=== PATIENT | female | born 1940 | race American Indian/Alaskan Native ===

== ENCOUNTER 2019-06-14 20:07 | Emergency (ER) | payer MEDICARE ==
[2019-06-14 20:24] VITALS: BP 143/60
--- NOTE | 2019-06-14 20:56 | Emergency Department Report ---
ED General Adult HPI - General Chief complaint: Hypoglycemia Stated complaint: LOW BLOOD SUGAR Time Seen by Provider: 06/14/19 20:54 Source: EMS Mode of arrival: Stretcher Limitations: No Limitations - History of Present Illness Initial comments: Patient is a 78-year-old female that presents emergency room for dizziness and lightheadedness and hypoglycemia. Patient states all her symptoms have resolved since taking in soda. Patient's blood pressure was also low on scene. Patient states she is feeling back to normal. Patient states she hasn't eaten anything today. Patient states she is recently placed on metformin for diabetes. Patient denies chest pain shortness of breath. Patient states she felt really bad when her sugar was low but after drinking the soda her symptoms improved and resolved. -: Sudden Consistency: now resolved Improves with: eating, rest Worsens with: none Associated Symptoms: diaphoresis, weakness. denies: confusion, chest pain, cough, fever/chills, headaches, loss of appetite, malaise, nausea/vomiting, rash, seizure, shortness of breath, syncope - Related Data Home Medications Medication Instructions Recorded Confirmed Last Taken ALBUTEROL Inhaler (OR & NICU) 2 puff IH Q4H PRN 06/14/19 06/14/19 06/14/19 [Proair] ALBUTEROL NEB's [Proventil] 2.5 mg IH TID PRN 06/14/19 06/14/19 06/14/19 Aspirin [Aspirin BABY CHEW TAB] 81 mg PO QDAY 06/14/19 06/14/19 06/14/19 Benzonatate [Tessalon Perles] 200 mg PO Q8HR 06/14/19 06/14/19 06/11/19 Carvedilol [Coreg] 12.5 mg PO BID 06/14/19 06/14/19 06/14/19 Dexlansoprazole [Dexilant] 60 mg PO TID 06/14/19 06/14/19 06/03/19 Dulaglutide [Trulicity] 1.5 mg SQ QWEEK 06/14/19 06/14/19 05/29/19 Flecainide [Tambocor] 100 mg PO Q12H 06/14/19 06/14/19 06/14/19 Fluticasone/Salmeterol [Advair 1 puff PO Q12H 06/14/19 06/14/19 06/14/19 Diskus 500-50 mcg] Levothyroxine [Synthroid] 75 mcg PO QAM 06/14/19 06/14/19 06/14/19 Linaclotide [Linzess] 72 mcg PO QAM 06/14/19 06/14/19 06/14/19 Metformin HCl [metFORMIN] 1,000 mg PO BID 06/14/19 06/14/19 06/14/19 Montelukast [Singulair] 10 mg PO QPM 06/14/19 06/14/19 06/03/19 Pravastatin [Pravachol] 80 mg PO QHS 06/14/19 06/14/19 06/14/19 Pregabalin [Lyrica] 75 mg PO BID 06/14/19 06/14/19 06/14/19 Valsartan/Hydrochlorothiazide 1 mg PO QDAY 06/14/19 06/14/19 06/14/19 [Valsartan-Hctz 160-25 mg Tab] ED Review of Systems ROS: Stated complaint: LOW BLOOD SUGAR Other details as noted in HPI Constitutional: denies: chills, fever Eyes: denies: eye pain, eye discharge, vision change ENT: denies: ear pain, throat pain Respiratory: denies: cough, shortness of breath, wheezing Cardiovascular: denies: chest pain, palpitations Endocrine: no symptoms reported Gastrointestinal: denies: abdominal pain, nausea, diarrhea Genitourinary: denies: urgency, dysuria, discharge Musculoskeletal: denies: back pain, joint swelling, arthralgia Skin: denies: rash, lesions Neurological: denies: headache, weakness, paresthesias Psychiatric: denies: anxiety, depression Hematological/Lymphatic: denies: easy bleeding, easy bruising ED Past Medical Hx - Past Medical History Previous Medical History?: Yes Hx Hypertension: Yes Hx Diabetes: Yes Hx Asthma: Yes Additional medical history: Thyroid - Surgical History Past Surgical History?: Yes Additional Surgical History: Thyroid - Family History Family history: no significant - Social History Smoking Status: Never Smoker Substance Use Type: None - Medications Home Medications: Home Medications Medication Instructions Recorded Confirmed Last Taken Type ALBUTEROL Inhaler (OR & NICU) 2 puff IH Q4H PRN 06/14/19 06/14/19 06/14/19 History [Proair] ALBUTEROL NEB's [Proventil] 2.5 mg IH TID PRN 06/14/19 06/14/19 06/14/19 History Aspirin [Aspirin BABY CHEW TAB] 81 mg PO QDAY 06/14/19 06/14/19 06/14/19 History Benzonatate [Tessalon Perles] 200 mg PO Q8HR 06/14/19 06/14/19 06/11/19 History Carvedilol [Coreg] 12.5 mg PO BID 06/14/19 06/14/19 06/14/19 History Dexlansoprazole [Dexilant] 60 mg PO TID 06/14/19 06/14/19 06/03/19 History Dulaglutide [Trulicity] 1.5 mg SQ QWEEK 06/14/19 06/14/19 05/29/19 History Flecainide [Tambocor] 100 mg PO Q12H 06/14/19 06/14/19 06/14/19 History Fluticasone/Salmeterol [Advair 1 puff PO Q12H 06/14/19 06/14/19 06/14/19 History Diskus 500-50 mcg] Levothyroxine [Synthroid] 75 mcg PO QAM 06/14/19 06/14/19 06/14/19 History Linaclotide [Linzess] 72 mcg PO QAM 06/14/19 06/14/19 06/14/19 History Metformin HCl [metFORMIN] 1,000 mg PO BID 06/14/19 06/14/19 06/14/19 History Montelukast [Singulair] 10 mg PO QPM 06/14/19 06/14/19 06/03/19 History Pravastatin [Pravachol] 80 mg PO QHS 06/14/19 06/14/19 06/14/19 History Pregabalin [Lyrica] 75 mg PO BID 06/14/19 06/14/19 06/14/19 History Valsartan/Hydrochlorothiazide 1 mg PO QDAY 06/14/19 06/14/19 06/14/19 History [Valsartan-Hctz 160-25 mg Tab] ED Physical Exam - General Limitations: No Limitations General appearance: alert, in no apparent distress - Head Head exam: Present: atraumatic, normocephalic - Eye Eye exam: Present: normal appearance, PERRL Pupils: Present: normal accommodation - ENT ENT exam: Present: mucous membranes moist - Neck Neck exam: Present: normal inspection - Respiratory Respiratory exam: Present: normal lung sounds bilaterally. Absent: respiratory distress, wheezes, rales - Cardiovascular Cardiovascular Exam: Present: regular rate, normal rhythm. Absent: systolic murmur, diastolic murmur, rubs, gallop - GI/Abdominal GI/Abdominal exam: Present: soft, normal bowel sounds - Extremities Exam Extremities exam: Present: normal inspection - Back Exam Back exam: Present: normal inspection - Neurological Exam Neurological exam: Present: alert, oriented X3 - Psychiatric Psychiatric exam: Present: normal affect, normal mood - Skin Skin exam: Present: warm, dry, intact, normal color. Absent: rash ED Course Vital Signs 06/14/19 06/14/19 20:17 22:04 Temperature 97.7 F 98 F Pulse Rate 79 81 Respiratory 16 18 Rate Blood Pressure 143/60 Blood Pressure 143/60 [Right] O2 Sat by Pulse 99 99 Oximetry - Reevaluation(s) Reevaluation #1: I discussed all results with patient. Patient is stable for discharge. Patient agrees with plan of care. Patient will be discharged home. Patient given all discharge instructions. Patient was understanding of discharge instructions. She states she is feeling good. Patient states she feels fine to go on. 06/14/19 21:56 ED Medical Decision Making - Lab Data Result diagrams: 06/14/19 21:19 06/14/19 21:19 - Medical Decision Making Patient is a 78-year-old female that presents emergency room for hypoglycemia. Patient was given a sugary drink prior to arrival and all of her symptoms resolved. Patient was asymptomatic in the ER. Patient's blood sugar was stable. Patient was stable for discharge. Patient discharged home. Patient's labs essentially unremarkable. Patient advised to hold off on taking metformin until she saw her primary. Patient given discharge instructions. Patient hypoglycemia most likely secondary to missed meals and the patient was advised to eat regularly. - Differential Diagnosis hypoglycemia. Miss meal. Diabetes Critical care attestation.: If time is entered above; I have spent that time in minutes in the direct care of this critically ill patient, excluding procedure time. ED Disposition Clinical Impression: Hypoglycemia, Lightheadedness Disposition: DC-01 TO HOME OR SELFCARE Is pt being admited?: No Does the pt Need Aspirin: No Condition: Stable Instructions: Diabetic Hypoglycemia (ED) Additional Instructions: Patient to follow-up with primary care in 2-3 days. Patient to return to ER if condition worsens. Patient to eat regularly. Patient to increase water. Patient to rest. Patient to avoid driving until cleared by primary care. Referrals: DION HADLEY MD [Primary Care Provider] - 2-3 Days Time of Disposition: 22:18
[2019-06-14 21:31] LABS: Basophils % (Auto) 0.4 % (0.0-1.8); Eosinophils # (Auto) 0.1 K/mm3 (0.0-0.4); Hemoglobin 11.3 gm/dl (10.1-14.3); Lymphocytes % (Auto) 32.6 % (13.4-35.0); Mean Corpuscular HGB Conc 33 % (30-34); Mean Corpuscular Volume 87 fl (79-97); Monocytes # (Auto) 0.4 K/mm3 (0.0-0.8); Monocytes % (Auto) 6.5 % (0.0-7.3); Platelet Count 242 K/mm3 (140-440); Red Blood Count 3.94 M/mm3 (3.65-5.03); Red Cell Distribution Width 17.5 % (13.2-15.2)
[2019-06-14 21:50] LABS: Alanine Aminotransferase 15 units/L (7-56); Albumin 3.9 g/dL (3.9-5); BUN/Creatinine Ratio 13; Blood Urea Nitrogen 12 mg/dL (7-17); Calcium 9.1 mg/dL (8.4-10.2); Hemolysis Index 2
== END 2019-06-14 22:27 | disposition home or self-care (01) ==
LOC: ED 20:07
DX: E11.649 Type 2 diabetes mellitus with hypoglycemia without coma (principal); I10 Essential (primary) hypertension; J45.909 Unspecified asthma, uncomplicated; Z79.4 Long term (current) use of insulin; Z98.890 Other specified postprocedural states; Z79.82 Long term (current) use of aspirin; Z79.899 Other long term (current) drug therapy
CPT/HCPCS: 36415; 80053; 82962; 85025; 93005; 93010; 99283